=== PATIENT | male | born 1950 | race Caucasian/White ===

== ENCOUNTER 2021-10-01 16:38 | Inpatient (IN) ==
[2021-10-01] MEDS ORDERED: Dextrose Gel 15 GM/37.5 ML TUBE PO PRN ×2 (16:55)
[2021-10-01] MEDS ORDERED: *HR* Dextrose 50 % in Water (Syg) 50 ML SYRINGE IVP PRN (16:55)
[2021-10-01] MEDS ORDERED: D5% in Water 1,000 ML IVC PRN (16:55)
[2021-10-01] MEDS: *HR* Heparin 5,000 UNIT/ML VIAL SQ SCH (21:35)
[2021-10-01] MEDS: *HR* OxyCODONE/APAP 5/325 TABLET PO PRN (21:35)
[2021-10-01] MEDS: Insulin LISPRO 300 UNITS/3 ML VIAL SUBQ SCH (21:37)
[2021-10-02] MEDS: *HR* Heparin 5,000 UNIT/ML VIAL SQ SCH ×2 (05:53→18:14)
[2021-10-02 07:10] LABS: Basophils # 0.1 K/mcL (0.0-0.2); Basophils % 0.4 %; Eosinophils # 0.1 K/mcL (0.0-0.6); Eosinophils % 0.9 %; Hematocrit 34.2 % (37.5-50.1); Hemoglobin 11.3 g/dL (12.9-16.9); Immature Granulocytes % 0.8 % (0-4); Lymphocytes # 2.1 K/mcL (0.6-4.6); Lymphocytes % 18.1 %; Mean Corpuscular Hemoglobin 29.5 pg (28.0-33.3); Mean Corpuscular Volume 89.3 fL (83.0-100.0); Mean Platelet Volume 8.9 fL (9.4-12.4); Monocytes % 8.8 %; Neutrophils # 8.1 K/mcL (1.6-8.9); Platelet Count 262 K/mcL (140-400); Red Blood Count 3.83 M/mcL (4.19-5.50); Red Cell Distribution Width 12.5 % (11.5-14.5); White Blood Count 11.4 K/mcL (4.3-11.1)
[2021-10-02 07:32] LABS: BUN/Creatinine Ratio 24 (6-26); Blood Urea Nitrogen 18 mg/dL (8-23); Calcium 8.4 mg/dL (8.6-10.3); Carbon Dioxide 31 mEq/L (23-29); Chloride 101 mEq/L (98-107); Glucose 203 mg/dL (70-105); Osmolality,Calculated 292 (280-300); Potassium 4.1 mEq/L (3.5-5.1); Sodium 137 mEq/L (136-145); eGFR For African Americans > 60 (> 60); eGFR For Non-African Americans > 60 (> 60)
[2021-10-02] MEDS: lisinopriL 20 MG TABLET PO SCH (08:12)
[2021-10-02] MEDS: Insulin LISPRO 300 UNITS/3 ML VIAL SUBQ SCH ×4 (08:13→20:35)
[2021-10-02] MEDS: *HR* OxyCODONE/APAP 5/325 TABLET PO PRN (20:34)
[2021-10-03] MEDS: *HR* Heparin 5,000 UNIT/ML VIAL SQ SCH ×2 (05:21→16:52)
[2021-10-03] MEDS: Insulin LISPRO 300 UNITS/3 ML VIAL SUBQ SCH ×4 (08:04→20:54)
[2021-10-03] MEDS: lisinopriL 20 MG TABLET PO SCH (08:04)
[2021-10-04] MEDS: *HR* Heparin 5,000 UNIT/ML VIAL SQ SCH ×2 (05:26→16:37)
[2021-10-04] MEDS: Insulin LISPRO 300 UNITS/3 ML VIAL SUBQ SCH ×4 (08:46→20:28)
[2021-10-04] MEDS: lisinopriL 20 MG TABLET PO SCH (08:46)
[2021-10-04] MEDS: *HR* Metformin 500 MG TABLET PO SCH ×2 (12:23→20:28)
[2021-10-04] MEDS: Insulin DETEMIR 100 UNIT/ML X5UNITS SUBQ SCH (20:28)
[2021-10-05] MEDS: *HR* Heparin 5,000 UNIT/ML VIAL SQ SCH ×2 (05:54→17:31)
[2021-10-05] MEDS: Insulin LISPRO 300 UNITS/3 ML VIAL SUBQ SCH ×4 (08:28→20:37)
[2021-10-05] MEDS: lisinopriL 20 MG TABLET PO SCH (08:28)
[2021-10-05] MEDS: *HR* Metformin 500 MG TABLET PO SCH ×2 (08:28→20:36)
[2021-10-05] MEDS: Insulin DETEMIR 100 UNIT/ML X5UNITS SUBQ SCH ×2 (09:11→20:38)
[2021-10-05 10:17] LABS: Estimated Average Glucose 203 mg/dl; Hemoglobin A1C 8.7 %
[2021-10-06] MEDS: *HR* Heparin 5,000 UNIT/ML VIAL SQ SCH ×2 (05:13→17:31)
[2021-10-06] MEDS: Insulin LISPRO 300 UNITS/3 ML VIAL SUBQ SCH ×4 (08:13→20:08)
[2021-10-06] MEDS: lisinopriL 20 MG TABLET PO SCH (08:52)
[2021-10-06] MEDS: *HR* Metformin 500 MG TABLET PO SCH ×2 (08:52→20:08)
[2021-10-06] MEDS: Insulin DETEMIR 100 UNIT/ML X5UNITS SUBQ SCH ×2 (09:06→20:09)
[2021-10-07] MEDS: *HR* Heparin 5,000 UNIT/ML VIAL SQ SCH ×2 (06:12→18:19)
[2021-10-07] MEDS: *HR* Metformin 500 MG TABLET PO SCH ×2 (08:09→21:03)
[2021-10-07] MEDS: lisinopriL 20 MG TABLET PO SCH (08:09)
[2021-10-07] MEDS: Insulin LISPRO 300 UNITS/3 ML VIAL SUBQ SCH ×4 (08:10→21:04)
[2021-10-07] MEDS: Insulin DETEMIR 100 UNIT/ML X5UNITS SUBQ SCH ×2 (08:19→21:03)
[2021-10-08] MEDS: *HR* Heparin 5,000 UNIT/ML VIAL SQ SCH ×2 (05:03→16:16)
[2021-10-08] MEDS: lisinopriL 20 MG TABLET PO SCH (08:02)
[2021-10-08] MEDS: Insulin LISPRO 300 UNITS/3 ML VIAL SUBQ SCH ×4 (08:02→21:20)
[2021-10-08] MEDS: *HR* Metformin 500 MG TABLET PO SCH ×2 (08:02→21:29)
[2021-10-08] MEDS: Insulin DETEMIR 100 UNIT/ML X5UNITS SUBQ SCH ×2 (08:38→21:29)
[2021-10-09] MEDS: *HR* Heparin 5,000 UNIT/ML VIAL SQ SCH ×2 (06:30→19:30)
[2021-10-09] MEDS: lisinopriL 20 MG TABLET PO SCH (08:40)
[2021-10-09] MEDS: Insulin DETEMIR 100 UNIT/ML X5UNITS SUBQ SCH ×2 (08:40→21:22)
[2021-10-09] MEDS: Insulin LISPRO 300 UNITS/3 ML VIAL SUBQ SCH ×4 (08:40→21:22)
[2021-10-09] MEDS: *HR* Metformin 500 MG TABLET PO SCH ×2 (08:40→20:13)
[2021-10-10] MEDS: *HR* Heparin 5,000 UNIT/ML VIAL SQ SCH ×2 (06:22→18:42)
[2021-10-10] MEDS: Insulin LISPRO 300 UNITS/3 ML VIAL SUBQ SCH ×4 (07:24→20:02)
[2021-10-10] MEDS: *HR* Metformin 500 MG TABLET PO SCH ×2 (09:23→20:09)
[2021-10-10] MEDS: lisinopriL 20 MG TABLET PO SCH (09:23)
[2021-10-10] MEDS: Insulin DETEMIR 100 UNIT/ML X5UNITS SUBQ SCH ×2 (09:24→20:09)
[2021-10-11] MEDS: *HR* Heparin 5,000 UNIT/ML VIAL SQ SCH ×2 (06:36→17:47)
[2021-10-11] MEDS: *HR* Metformin 500 MG TABLET PO SCH ×2 (09:24→20:16)
[2021-10-11] MEDS: lisinopriL 20 MG TABLET PO SCH (09:24)
[2021-10-11] MEDS: Insulin LISPRO 300 UNITS/3 ML VIAL SUBQ SCH ×4 (09:25→21:33)
[2021-10-11] MEDS: Insulin DETEMIR 100 UNIT/ML X5UNITS SUBQ SCH ×2 (10:10→20:16)
[2021-10-12] MEDS: *HR* Heparin 5,000 UNIT/ML VIAL SQ SCH (06:24)
[2021-10-12] MEDS: Insulin LISPRO 300 UNITS/3 ML VIAL SUBQ SCH (07:05)
[2021-10-12 07:12] VITALS: BP 118/57; PULSE 63; RESP 17; TEMP 97.9; O2SAT 97
[2021-10-12] MEDS: lisinopriL 20 MG TABLET PO SCH (10:21)
[2021-10-12] MEDS: Insulin DETEMIR 100 UNIT/ML X5UNITS SUBQ SCH (10:21)
[2021-10-12] MEDS: *HR* Metformin 500 MG TABLET PO SCH (10:21)
== END 2021-10-12 10:56 | disposition home health service (06) | DRG 638 ==
LOC: INPPIK 18:37
PROVIDERS: ADMIT Internal Medicine; ATTEND Internal Medicine